=== PATIENT | female | born 1950 | race Caucasian/White ===

== ENCOUNTER 2016-11-26 12:08 | Emergency (ER) | payer MEDICARE, OTHER ==
[2016-11-26 12:15] VITALS: BP 142/90
[2016-11-26] MEDS ORDERED: SIME80TA14 PO (13:11)
[2016-11-26] MEDS ORDERED: ONDA4TAB10 PO (13:11)
[2016-11-26] MEDS ORDERED: LISI40TA PO (13:11)
--- NOTE | 2016-11-26 13:14 | PHYS DOC ---
General Chief Complaint: NAUSEA/VOMITING/DIARRHEA Stated Complaint: NAUSEA/LIGHTHEADED Time Seen by MD: 13:08 Source: patient Exam Limitations: no limitations Problems: History of Present Illness Initial Comments Patient is a 66-year-old female who comes to the ED complaining of a drug reaction. Patient states she has history of hypertension and she has taken lisinopril 40 mg for a long period of time. She obtained a new prescription today from the same pharmacy she always uses an says she took one this morning with oatmeal. An hour or so after eating taking the medications she says she developed 20 minutes of dry heaving or gagging. She says she was dry heaving but nothing would come up despite having eaten recently. Those symptoms resolved after 20 minutes and she's been asymptomatic since then. Patient says that she and her thought maybe they had a bad hot dog however he has not had any symptoms and she is now feeling better. She denies abdominal pain fever chills sweats or myalgias vomiting diarrhea or appetite changes. She has decided that she took about lisinopril and is requesting a new prescription. She has concerns that perhaps there was a mistake at the factory or pharmacy or that her medication was tapered with because "you never know these days with although political scandal deception." I tried to reassure her and I discussed other possible causes for her symptoms. She is dismissive of other mentions possible causes and is persistent in her request for a new lisinopril prescription. She denies any known enemies or suspicious interactions which could have incited prescription tampering etc. Timing/Duration: 1-3 hours Severity: moderate Modifying Factors: improves with medication Associated Symptoms: other Allergies: Coded Allergies: clindamycin (Verified Allergy, Intermediate, Rash, 06/09/16) Past Medical History Medical History: other (hypertension, acoustic neuroma) Surgical History: noncontributory Social History Smoker: non-smoker Alcohol: none Drugs: none Review of Systems Constitutional: denies chills, denies diaphoresis, denies fever, denies malaise Respiratory: denies cough, denies shortness of breath Cardiovascular: denies chest pain, denies palpitations Gastrointestinal: see HPI, denies abdominal pain, denies constipation, denies diarrhea, denies nausea, denies vomiting Genitourinary: denies dysuria, denies frequency, denies hematuria Musculoskeletal: denies back pain, denies joint swelling, denies neck pain Psychiatric/Neurological: denies headache, denies numbness, denies paresthesia Physical Exam General Appearance: WD/WN, no apparent distress Eyes: bilateral eye normal inspection, bilateral eye PERRL, bilateral eye EOMI Ear, Nose, Throat: hearing grossly normal, normal ENT inspection (no mouth throat or pharynx swelling airway is patent) Neck: non-tender, supple Respiratory: normal breath sounds, no respiratory distress Cardiovascular: normal peripheral pulses, regular rate, rhythm Gastrointestinal: normal bowel sounds, non tender, soft, no organomegaly Back: no CVA tenderness, no vertebral tenderness Extremities: non-tender, normal inspection Neurologic/Psychiatric: card cleaner II-XII nml as tested, no motor/sensory deficits, alert, oriented x 3, other (patient does appear to be somewhat paranoid in her thinking with lisinopril but is otherwise alert and oriented 3 with judgment and insight intact) Skin: normal color, warm/dry Orders, Labs, Meds I advised her that I was unable to write her for months prescription but I couldn't write her a week's prescription giving her enough time to see her doctor. She understands insurance will likely not pay for it but wants to pay out of pocket. Her vital signs remained stable she developed no new or progressive symptoms throughout the course I did write her 7 days of lisinopril 40 mg and she was advised to follow-up with her doctor in the next few days. She was reassured and expressed agreement and understanding with this plan. Departure Time of Disposition: 13:11 Disposition: 01 HOME, SELF-CARE Diagnosis: abdominal discomfort NOS Condition: IMPROVED Patient Instructions: Abdominal Pain (Nonspecific) Additional Instructions: No specific cause for your symptoms identified. Could be evolving process, will treat symptomatically with close PCP follow up. At your request, 7 day rx of your home lisinopril 40mg given today. Additional Rx: zofran odt, simethicone. Clear liquids today, advance diet as tolerated tomorrow. Follow up with your doctor in 3 days if not better. Return to ED with new or changing symptoms. JESSEE ABRAHAM DO Nov 26, 2016 13:14
[2016-11-26] MEDS ORDERED: SIMETHICONE 80 MG TAB.CHEW PO PRN (13:15)
[2016-11-26] MEDS ORDERED: ONDANSETRON ODT 4 MG TAB.RAPDIS PO ONE (13:20)
== END 2016-11-26 13:27 | disposition home or self-care (01) ==
LOC: ER 12:08
DX: R10.9 Unspecified abdominal pain (principal); I10 Essential (primary) hypertension; Z88.1 Allergy status to other antibiotic agents
CPT/HCPCS: 99283

== ENCOUNTER → 2017-06-01 | Outpatient (CLI) | payer MEDICARE, OTHER ==
[~2017-06-01] MED LIST: LISI40TA PO; ONDA4TAB10 PO; SIME80TA14 PO
--- NOTE | 2017-06-01 12:29 | RAD ---
Two-view right hip with AP pelvis 06/01/2017 Clinical indication: Right hip and groin pain and swelling. Comparison: None. Findings: No acute bony pelvic fracture or traumatic malalignment. The joint spaces are maintained. No diastases of the sacroiliac or symphysis pubis articulations. The right femoral head is round without collapse. No significant joint space narrowing or osteophytic spurring. Impression: No acute osseous abnormality.
--- NOTE | 2017-06-01 12:31 | RAD ---
2 views right femur. Clinical indication: Right hip and groin pain. Comparison: None. Findings: No acute fracture or traumatic malalignment of the femoral diaphysis. The visualized soft tissues are unremarkable. Impression: No acute osseous abnormality of the right femoral diaphysis.
== END | disposition home or self-care (01) ==
LOC: RAD 10:26
PROVIDERS: ATTEND Family Medicine
DX: M25.551 Pain in right hip (principal); R10.31 Right lower quadrant pain
CPT/HCPCS: 73502; 73552

== ENCOUNTER 2021-07-16 02:20 | Emergency (ER) | payer MEDICARE, OTHER ==
[~2021-07-16] VITALS: Ht 170.2 cm; Wt 64.5 kg
[~2021-07-16 02:20] MED LIST changes: -LISI40TA PO; +LISI40TA6 PO
[2021-07-16 02:28] VITALS: BP 169/96
--- NOTE | 2021-07-16 02:29 | PHYS DOC ---
Past History Past Medical History: Hypertension Past Surgical History: Other Alcohol Use: None Drug Use: None General Adult EDM: Chief Complaint: SHOULDER INJURY HPI: HPI: ".. I was carrying a crock pot earlier.. And the floor was a little bit slick ... And almost went down ...and maybe mess up my right shoulder...". " I did drop the crock pot.. it broke.... All to heck... " " My shoulder area is still sore.. even though it happen yesterday afternoon. Patient is a 71 year old female who presents with above hx and complaints of RT shoulder injury. Pt. localizes pain to Rt, A/C and Deltoid area. Has good range of motion. Point tenderness to AC area and Trapezius. No other injury in the near fall. Review of Systems: Review of Systems: Constitutional: Denies fever or chills Eyes: Denies change in visual acuity HENT: Denies nasal congestion or sore throat Respiratory: Denies cough or shortness of breath Cardiovascular: Denies chest pain or edema GI: Denies abdominal pain, nausea, vomiting, bloody stools or diarrhea : Denies dysuria Musculoskeletal: Complaints of Rt. AC and trapezius area. Integument: Denies rash Neurologic: Denies headache, focal weakness or sensory changes Endocrine: Denies polyuria or polydipsia Lymphatic: Denies swollen glands Psychiatric: Denies depression or anxiety Family History: Family History: Non contributory Current Medications: Current Meds: See nursing for home meds Allergies: Allergies: Allergies Coded Allergies Type Severity Reaction Last Updated Verified clindamycin Allergy Intermediate Rash 06/09/16 Yes Physical Exam: PE: Constitutional: Moderatedacute distress, non-toxic appearance. [] HENT: Normocephalic, atraumatic, bilateral external ears normal, oropharynx moist, no oral exudates, nose normal. [] Eyes: PERRLA, EOMI, conjunctiva normal, no discharge. [] Neck: Normal range of motion, no tenderness, supple, no stridor. [] Cardiovascular:Heart rate regular rhythm, no murmur [. PMI to Lt. ] Lungs & Thorax: Bilateral breath sounds equal apex on auscultation [] Abdomen: Bowel sounds normal, soft, no tenderness, no masses, no pulsatile masses. [] Skin: Warm, dry, no erythema, no rash. Poor turgor Back: No tenderness, no CVA tenderness. [] Extremities:Rt. shoulder tenderness, no cyanosis, no clubbing, ROM intact, no edema. Rt. hand swollen- chronic x 15 yrs. - s/p injury Neurologic: Alert and oriented X 3, normal motor function, normal sensory function, no focal deficits noted. [] Psychologic: Affect anxious, judgement normal, mood normal. [] EKG: EKG: [] Radiology/Procedures: Radiology/Procedures: [[address] [address] IMAGING REPORT Signed PATIENT: BIANCA GONZALEZ ACCOUNT: [id number] : 1950 LOCATION: ER AGE: 71 SEX: F EXAM STATUS: REG ER ORD. PHYSICIAN: FRANCESCO SNOW MD REASON: shoulder pain PROCEDURE: CHEST AP ONLY EXAMINATION: XR CHEST 1V CLINICAL HISTORY: Chest pain. EXAM DATE/TIME: 07/16/2021 2:58 AM COMPARISON: 12/20/2018 FINDINGS: Lines, Tubes, and Devices: None. Cardiomediastinal Silhouette: Within normal limits. Lungs and Pleura: No evidence of focal airspace consolidation or pleural effusion. Pulmonary vasculature unremarkable. Bones and Soft Tissues: Degenerative changes in the thoracic spine. IMPRESSION: No evidence of acute cardiopulmonary abnormality. Electronically signed by: Aron Plasencia DO (07/16/2021 3:22 AM) [facility] DICTATED AND SIGNED BY: ARON PLASENCIA DO DATE: 07/16/21 0321 CC: FRANCESCO SNOW MD; PCP,NO ~ ][address] [address] IMAGING REPORT Signed PATIENT: BIANCA GONZALEZ ACCOUNT: [id number] : 1950 LOCATION: ER AGE: 71 SEX: F EXAM STATUS: REG ER ORD. PHYSICIAN: FRANCESCO SNOW MD REASON: shoulder pain PROCEDURE: SHOULDER 2+V RIGHT EXAMINATION: XR SHOULDER_RIGHT 2+ VIEWS CLINICAL HISTORY: Right shoulder pain. TECHNIQUE: XR SHOULDER_RIGHT 2+ VIEWS COMPARISON: None FINDINGS/ IMPRESSION: Glenohumeral degenerative changes with small inferior marginal osteophytes. Mild hypertrophic acromioclavicular degenerative changes. No acute fracture. Electronically signed by: Aron Plasencia DO (07/16/2021 3:23 AM) [facility] DICTATED AND SIGNED BY: ARON PLASENCIA DO DATE: 07/16/21321 CC: FRANCESCO SNOW MD; PCP,NO ~ Heart Score: C/O Chest Pain: N/A Risk Factors: Risk Factors: DM, Current or recent (<one month) smoker, HTN, HLP, family history of CAD, obesity. Risk Scores: Score 0 - 3: 2.5% MACE over next 6 weeks - Discharge Home Score 4 - 6: 20.3% MACE over next 6 weeks - Admit for Clinical Observation Score 7 - 10: 72.7% MACE over next 6 weeks - Early Invasive Strategies Course & Med Decision Making: Course & Med Decision Making Pertinent Labs and Imaging studies reviewed. (See chart for details) Ice packs as needed. Tylenol and ibuprofen for pain. Follow-up primary care. Return if any concern. Impression: 1.Muscle strain/ sprain. [] Charo Disclaimer: Charo Disclaimer: This electronic medical record was generated, in whole or in part, using a voice recognition dictation system. Departure Departure: Referrals: PCP,NO (PCP) FRANCECSO SNOW MD Jul 16, 2021 02:29
[2021-07-16] MEDS ORDERED: HYDROcodon/IBUPROFEN 7.5/200MG 1 TAB TABLET PO ONE (02:45)
--- NOTE | 2021-07-16 03:24 | RAD ---
EXAMINATION: XR CHEST 1V CLINICAL HISTORY: Chest pain. EXAM DATE/TIME: 07/16/2021 2:58 AM COMPARISON: 12/20/2018 FINDINGS: Lines, Tubes, and Devices: None. Cardiomediastinal Silhouette: Within normal limits. Lungs and Pleura: No evidence of focal airspace consolidation or pleural effusion. Pulmonary vasculat ure unremarkable. Bones and Soft Tissues: Degenerative changes in the thoracic spine. IMPRESSION: No evidence of acute cardiopulmonary abnormality. Electronically signed by: Aron Benjamin DO (07/16/2021 3:22 AM) [facility]
--- NOTE | 2021-07-16 03:25 | RAD ---
EXAMINATION: XR SHOULDER_RIGHT 2+ VIEWS CLINICAL HISTORY: Right shoulder pain. TECHNIQUE: XR SHOULDER_RIGHT 2+ VIEWS COMPARISON: None FINDINGS/ IMPRESSION: Glenohumeral degenerative changes with small inferior marginal osteophytes. Mild hypertrophic acromio clavicular degenerative changes. No acute fracture. Electronically signed by: Aron Benjamin DO (07/16/2021 3:23 AM) [facility]
== END 2021-07-16 04:44 | disposition home or self-care (01) ==
LOC: ER 02:20
DX: S43.401A Unspecified sprain of right shoulder joint, initial encounter (principal); I10 Essential (primary) hypertension; Z88.1 Allergy status to other antibiotic agents; X50.9XXA Other and unspecified overexertion or strenuous movements or postures, initial encounter; Y93.89 Activity, other specified; Y92.89 Other specified places as the place of occurrence of the external cause; Y99.8 Other external cause status
CPT/HCPCS: 71045; 73030; 99284